=== PATIENT | male | born 1960 | race Caucasian/White ===

== ENCOUNTER 2020-07-31 20:27 | Emergency (ER) | payer OTHER ==
[~2020-07-31 20:27] MED LIST: ATARAX25 MG PO; BREO ELLIPTA 11 EACH PO; CLARITIN10 MG PO; FISH OIL 1,0001 EAC1 PO; NAPROXEN500 MG PO; PRILOSEC20 MG PO; SERTRALINE HCL25 MG PO; VENTOLIN HFA IN18 GM INH; VITAMIN E400 UNI4 PO; ZOCOR10 MG PO
== END 2020-07-31 22:58 | disposition home or self-care (01) ==
LOC: FER 20:27
DX: S61.211A Laceration without foreign body of left index finger without damage to nail, initial encounter (principal); I10 Essential (primary) hypertension; Z23 Encounter for immunization; W27.8XXA Contact with other nonpowered hand tool, initial encounter; Y92.009 Unspecified place in unspecified non-institutional (private) residence as the place of occurrence of the external cause
CPT/HCPCS: 90715

== ENCOUNTER 2020-08-07 12:31 | Emergency (ER) | payer OTHER | END 2020-08-07 14:26 | disposition home or self-care (01) | LOC: FER 12:31 | DX: S61.211D Laceration without foreign body of left index finger without damage to nail, subsequent encounter (principal); I10 Essential (primary) hypertension; F17.210 Nicotine dependence, cigarettes, uncomplicated; X58.XXXD Exposure to other specified factors, subsequent encounter | CPT/HCPCS: 99281 ==

== ENCOUNTER 2021-01-14 21:22 | Emergency (ER) | payer OTHER ==
[2021-01-15 00:47] LABS: BASOPHIL 0.7 % (0-2); EOSINOPHIL 0.4 % (0-5); HCT 40.1 % (42.0-52.0); HGB 13.1 g/dl (13.2-18.0); LYMPHOCYTE 20.8 % (15-48); MCH 27.9 pg (25.0-31.0); MCHC 32.7 g/dL (32.0-36.0); MCV 85.5 fL (78.0-100.0); MONOCYTE 6.3 % (0-12); MPV 9.4 fL (6.0-9.5); NEUTROPHIL 71.5 % (41-80); NRBC 0; PLT 257 K/uL (150-400); RBC 4.69 M/uL (4.70-6.00); RDW 15.5 % (11.5-14.0); WBC 11.8 K/uL (4.0-10.5)
[2021-01-15 00:50] LABS: INR 1.03 (0.9-1.2); PROTHROMBIN TIME 12.9 SECONDS (11.8-13.4)
[2021-01-15 00:55] LABS: BILIRUBIN - TOTAL 0.3 mg/dL (0.2-1.0); BUN/CREAT RATIO (CALC) 8.5 RATIO; CREATININE 1.3 mg/dL (0.67-1.17); GLOBULIN (CALCULATION) 3.8 g/dL; POTASSIUM 4.2 mmol/L (3.5-5.1); TOTAL PROTEIN 7.8 g/dL (6.4-8.2)
[2021-01-15] MEDS ORDERED: FLEXERIL5 MG PO (03:48)
== END 2021-01-15 04:14 | disposition home or self-care (01) ==
LOC: FER 21:22
PROVIDERS: Emergency Medicine
DX: S02.2XXA Fracture of nasal bones, initial encounter for closed fracture (principal); S20.212A Contusion of left front wall of thorax, initial encounter; M79.601 Pain in right arm; M54.9 Dorsalgia, unspecified; F17.200 Nicotine dependence, unspecified, uncomplicated; I25.10 Atherosclerotic heart disease of native coronary artery without angina pectoris; J44.9 Chronic obstructive pulmonary disease, unspecified; Y04.0XXA Assault by unarmed brawl or fight, initial encounter; Y92.009 Unspecified place in unspecified non-institutional (private) residence as the place of occurrence of the external cause
CPT/HCPCS: 36415; 70450; 71260; 72128; 72131; 73030; 73080; 80053; 83690; 85025; 85610; J7030; Q9967